=== PATIENT | female | born 1965 | race Two or more races ===

== ENCOUNTER 2025-09-27 08:39 | Inpatient (IN) | payer OTHER ==
[~2025-09-27] VITALS: Ht 162.6 cm; Wt 63.5 kg
--- NOTE | 2025-09-27 09:25 | NUR ---
PACIENTE FEMINA ALERTA Y ORIENTADAA X3 REFIERE HACE DOS DELEON DR. QUIGLEY LE RELAIZO SHONA COLONOSCOPIA Y DESDE STEVEN PRESENTA SANGRADO COLOR QUEVEDO BRILLANTE.SE MIDE SIGNOS VIALES Y SE UBICA PARA SER EVALUADO.
[2025-09-27] MEDS ORDERED: ONDANSETRON HCL 2 MG/ML VIAL IV STA (09:42)
[2025-09-27] MEDS ORDERED: 0.9 % SODIUM CHLORIDE 1,000 ML IV STA (09:42)
[2025-09-27] MEDS ORDERED: FAMOTIDINE/PF 20 MG/2 ML VIAL IV STA (09:42)
[2025-09-27] MEDS ORDERED: ONDANSETRON HCL 2 MG/ML VIAL ONE (10:13)
[2025-09-27] MEDS ORDERED: FAMOTIDINE/PF 20 MG/2 ML VIAL ONE ×2 (10:13→15:48)
[2025-09-27 12:11] LABS: URINE APPEARANCE Clear; URINE BILIRRUBIN Negative (NEGATIVE); URINE BLOOD Small; URINE COLOR Dark Yellow; URINE LEUKOCYTE Negative; URINE NITRATE Negative; URINE PROTEIN 30 (NEGATIVE); URINE UROBILINOGEN 0.2 E.U./dl
[2025-09-27 12:14] LABS: ob POSITIVE (NEGATIVE)
[2025-09-27 12:15] LABS: URINE BACTERIA 10.7 uL (0.0-1933); URINE EPITHELIAL CELLS 15.8 uL (0.0-38.8); URINE RBC 14.8 uL (0.0-20.8); URINE WBC 9.3 uL (0.0-23.2)
[2025-09-27 12:20] LABS: URINE CAST 1.17 uL (0.0-1.40); URINE GLUCOSE 100 MG/DL (NEGATIVE); URINE KETONE 40 (NEGATIVE)
[2025-09-27 12:40] LABS: BASO % 0.3 % (0.1-1.2); EOS # 0.02 (0.04-0.54); EOS % 0.2 % (0.7-7.0); LYMPH # 1.33 (1.18-3.74); LYMPH % 11.0 % (19.3-53.1); MEAN PLATELET VOLUME 11.20 fl (9.4-12.4); MONO # 0.68 (0.24-0.82); MONO % 5.6 % (4.7-12.5); NEUT # 10.00 (1.56-6.13); NEUT % 82.6 % (34.0-71.1); RED CELL DISTRIBUTION WIDTH 13.6 % (11.6-14.4)
[2025-09-27 12:46] LABS: ALT/SGPT 46.0 U/L (12-78); AST/SGOT 25.0 U/L (15-37); BILIRUBIN TOTAL 1.63 mg/dL (0.3-1.2); BILIRUBIN,CONJUGATED 0.28 mg/dL (0.0-0.2); BUN CREA RATIO 12.0 (7.0-25.0); CREATININE SERUM 0.66 mg/dL (0.55-1.02); GFR 91.05; GLUCOSE FASTING 125.0 mg/dL (65-100); OSMOLALITY SERUM 277.0 MOSM/KG (275-295)
[2025-09-27 13:08] LABS: ERYTHROCYTE SEDIMENTATION RATE 34 mm/hr (0-30)
[2025-09-27 13:13] LABS: INR 1.03
--- NOTE | 2025-09-27 14:29 | NUR ---
RN JERRY EDUCA A PACIENTE SOBRE [place] MEDICO, ESTA REFIERE ENTENDER. SE EXTRAEN MUESTRAS DE LABORATORIO Y SE ADMINISTRAN MEDICAMENTOS MARYANA ORDEN MEDICA.
[2025-09-27] MEDS ORDERED: FAMOTIDINE/PF 20 MG in 0.9 % SODIUM CHLORIDE 100 ML IV SCH (15:21)
[2025-09-27] MEDS ORDERED: 0.9 % SODIUM CHLORIDE 1,000 ML IV SCH (15:30)
[2025-09-27] MEDS ORDERED: ACETAMINOPHEN 325 MG TABLET PO PRN (15:30)
[2025-09-27] MEDS ORDERED: TRAMADOL HCL 50 MG TABLET PO PRN (15:30)
[2025-09-27] MEDS ORDERED: METRONIDAZOLE/SODIUM CHLORIDE 500 MG/100 ML PIGGYBACK IV ONE (15:48)
[2025-09-27] MEDS ORDERED: levoFLOXacin IN DEXTROSE 5 % 500MG/100ML PIGGYBAG IV ONE (15:48)
[2025-09-27 16:21] VITALS: BP 100/70
[2025-09-27 19:10] VITALS: BP 147/74; O2SAT 97
[2025-09-27 23:30] VITALS: BP 106/65; O2SAT 99
[2025-09-28 06:33] LABS: ALT/SGPT 31.0 U/L (12-78); AST/SGOT 15.0 U/L (15-37); BILIRUBIN TOTAL 1.47 mg/dL (0.3-1.2); BUN CREA RATIO 13.0 (7.0-25.0); CREATININE SERUM 0.55 mg/dL (0.55-1.02); GFR 112.37; GLOBULINA 3.2 G/DL (2.4-3.5); GLUCOSE FASTING 121.0 mg/dL (65-100); OSMOLALITY SERUM 282.0 MOSM/KG (275-295)
[2025-09-28 06:38] LABS: BASO % 0.6 % (0.1-1.2); EOS # 0.13 (0.04-0.54); EOS % 1.3 % (0.7-7.0); LYMPH # 1.53 (1.18-3.74); LYMPH % 15.7 % (19.3-53.1); MEAN PLATELET VOLUME 11.20 fl (9.4-12.4); MONO # 0.70 (0.24-0.82); MONO % 7.2 % (4.7-12.5); NEUT # 7.27 (1.56-6.13); NEUT % 74.8 % (34.0-71.1); RED CELL DISTRIBUTION WIDTH 13.5 % (11.6-14.4)
[2025-09-28 08:00] VITALS: BP 119/75; O2SAT 98
[2025-09-28 16:20] VITALS: BP 117/75; O2SAT 99
[2025-09-28] MEDS ORDERED: LACTOBACILLUS ACIDOPHILUS 1 CAP CAP PO SCH (17:00)
[2025-09-28] MEDS ORDERED: FAMOTIDINE/PF 20 MG in 0.9 % SODIUM CHLORIDE 100 ML IV SCH (21:00)
[2025-09-29 00:47] VITALS: BP 121/65; O2SAT 98
[2025-09-29 07:47] LABS: BASO % 0.7 % (0.1-1.2); EOS # 0.25 (0.04-0.54); EOS % 3.5 % (0.7-7.0); LYMPH # 1.92 (1.18-3.74); LYMPH % 27.2 % (19.3-53.1); MEAN PLATELET VOLUME 11.70 fl (9.4-12.4); MONO # 0.45 (0.24-0.82); MONO % 6.4 % (4.7-12.5); NEUT # 4.38 (1.56-6.13); NEUT % 61.9 % (34.0-71.1); RED CELL DISTRIBUTION WIDTH 13.5 % (11.6-14.4)
[2025-09-29 07:58] LABS: BUN CREA RATIO 15.0 (7.0-25.0); CREATININE SERUM 0.53 mg/dL (0.55-1.02); GFR 117.27; GLUCOSE FASTING 100.0 mg/dL (65-100); OSMOLALITY SERUM 287.0 MOSM/KG (275-295)
[2025-09-29 08:51] VITALS: BP 121/70; O2SAT 99
[2025-09-29 17:13] VITALS: BP 125/75; O2SAT 99
[2025-09-29 23:52] VITALS: BP 125/69; O2SAT 99
[2025-09-30 08:49] VITALS: BP 132/69; O2SAT 98
[2025-09-30] MEDS ORDERED: INTESTINEX680 M1 PO (09:17)
[2025-09-30] MEDS ORDERED: CIPRO500 MG PO (09:17)
[2025-09-30] MEDS ORDERED: METRONIDAZOLE500 MG PO (09:18)
[2025-09-30] MEDS ORDERED: HYOSCYAMINE0.125 M1 SL (09:19)
[2025-09-30] MEDS ORDERED: PEPCID AC20 MG PO (09:19)
== END 2025-09-30 11:18 | disposition home or self-care (01) | DRG 379 ==
LOC: ER 08:40 → SURG 17:14 → SURH 17:14
PROVIDERS: General Practice; Internal Medicine Geriatric Medicine; ADMIT Surgery; ATTEND Surgery
PROC: BW21YZZ Computerized Tomography (CT Scan) of Abdomen and Pelvis using Other Contrast (ICD-10-PCS; principal; 2025-09-27)
DX: K92.2 Gastrointestinal hemorrhage, unspecified (principal); D72.828 Other elevated white blood cell count